=== PATIENT | female | born 1940 | race Caucasian/White ===

== ENCOUNTER 2016-09-27 01:48 | Emergency (ER) | payer MEDICARE, OTHER ==
[~2016-09-27 01:48] MED LIST: BACT800T5 PO; COUM7.5T PO; LEFL20 PO; LOSA50TA PO; MACR100C PO; METO50TA PO
[2016-09-27 03:16] VITALS: BP 140/67; PULSE 78; RESP 16; TEMP 97.9; O2SAT 98
[2016-09-27] MEDS ORDERED: LOSA50TA PO (03:30)
[2016-09-27] MEDS ORDERED: LEFL1TAB3 PO (03:30)
[2016-09-27] MEDS ORDERED: METO50TA PO (03:30)
[2016-09-27] MEDS ORDERED: MONT10TA4 PO (03:30)
[2016-09-27] MEDS ORDERED: FLUT50SP EACH NARE (03:30)
[2016-09-27] MEDS ORDERED: WARF-21 PO (03:30)
[2016-09-27 03:41] LABS: AUTOMATED NEUTROPHIL # 6.3 TH/MM3 (1.8-7.7); BASOPHIL # 0.1 TH/MM3 (0-0.2); BASOPHIL % 0.8 % (0.0-2.0); EOSINOPHIL # 0.2 TH/MM3 (0-0.4); EOSINOPHIL % 1.8 % (0.0-4.0); HEMATOCRIT 37.2 % (35.0-46.0); HEMO FLAGS DIFF FINAL; LYMPH % 16.5 % (9.0-44.0); LYMPHOCYTE # 1.5 TH/MM3 (1.0-4.8); MEAN CELL VOLUME 90.7 FL (80.0-100.0); MEAN CORPUSCULAR HEMOGLOBIN 29.1 PG (27.0-34.0); MEAN CORPUSCULAR HGB CONC 32.1 % (32.0-36.0); MONO % 10.4 % (0.0-8.0); NEUT % 70.5 % (16.0-70.0); PLATELET COUNT 247 TH/MM3 (150-450); RED CELL DISTRIBUTION WIDTH 13.5 % (11.6-17.2); WHITE BLOOD COUNT 8.9 TH/MM3 (4.0-11.0)
[2016-09-27 03:51] LABS: INTERNATIONAL NORMALIZED RATIO 2.6 RATIO; PROTHROMBIN TIME - PATIENT 30.2 SEC (9.8-11.6)
--- NOTE | 2016-09-27 03:51 | PD ---
HPI Chief Complaint: Bleeding Time Seen by Provider: 03:46 Travel History International Travel<30 days: No Contact w/Intl Traveler<30days: No Traveled to known affect area: No History of Present Illness HPI 76-year-old female came to the emergency room with her with history of some oral bleeding. She was asleep when she woke up and made her way to the bathroom. The there is something stuck in her throat. Offered out was a small quantity of blood mixed with mucus. Patient got concerned and came to the emergency room. No history of fever or vomiting. When she looked in the mirror there was some blood that was around her lower gum margin. Patient is on Coumadin and hence was concerned and came to the emergency room. [facility] Past Medical History Narrative Medical List of her past medical, surgical, social and family history is reviewed from the nursing note. Hx Anticoagulant Therapy: Yes Cancer: Yes (HX R BREAST) Cardiovascular Problems: Yes High Cholesterol: Yes Diminished Hearing: No Hypertension: Yes Tetanus Vaccination: Unknown ?: Not Past Surgical History Cardiac Surgery: Yes (HEART VALVE REPLACEMENT) Coronary Artery Bypass Graft: Yes Hysterectomy: Yes Mastectomy: Yes (right side ) Social History Alcohol Use: No Tobacco Use: No Substance Use: No Allergies-Medications (Allergen,Severity, Reaction): Coded Allergies: CRESTOR (Verified Allergy, Unknown, LIPS SWELLED, 09/27/16) Penicillin (Verified Allergy, Unknown, ANAPHYLAXIS, 09/27/16) Comments List of her allergies reviewed from the nursing note. Reported Meds & Prescriptions Reported Meds & Active Scripts Active Reported Fluticasone Nasal [place] 50 Mcg/Act Naspr 100 Mcg EACH NARE DAILY 50 mcg/spray Montelukast (Montelukast Sodium) 10 Mg Tab 10 Mg PO HS Leflunomide 20 Mg Tab 20 Mg PO DAILY Losartan (Losartan Potassium) 50 Mg Tab 50 Mg PO DAILY Metoprolol Tartrate 50 Mg Tab 50 Mg PO BID Warfarin 7.5 Mg Tab 7.5 Mg PO DAILY Narrative Medication List of her home medications reviewed from the nursing note. Review of Systems Except as stated in HPI: all other systems reviewed are Neg Physical Exam Narrative GENERAL: Awake, alert, elderly, anxious, no obvious distress SKIN: Focused skin assessment warm/dry. HEAD: Atraumatic. Normocephalic. EYES: Pupils equal and round. No scleral icterus. No injection or drainage. ENT: No nasal bleeding or discharge. Mucous membranes pink and moist. The oral mucosa was inspected closely including the nostril. There was no active bleeding. The lower gum margin looked a little eroded. NECK: Trachea midline. No JVD. CARDIOVASCULAR: Regular rate and rhythm. No murmur appreciated. RESPIRATORY: No accessory muscle use. Clear to auscultation. Breath sounds equal bilaterally. GASTROINTESTINAL: Abdomen soft, non-tender, nondistended. Hepatic and splenic margins not palpable. MUSCULOSKELETAL: No obvious deformities. No clubbing. No cyanosis. No edema. NEUROLOGICAL: Awake and alert. No obvious cranial nerve deficits. Motor grossly within normal limits. Normal speech. PSYCHIATRIC: Appropriate mood and affect; insight and judgment normal. Data Data Last Documented VS Vital Signs Date Time Temp Pulse Resp B/P Pulse Ox O2 Delivery O2 Flow Rate FiO2 09/27/16 03:16 97.9 78 16 140/67 98 Orders Complete Blood Count With Diff (09/27/16 03:14) Prothrombin Time / Inr (Pt) (09/27/16 03:14) Labs Laboratory Tests Test 09/27/16 03:20 White Blood Count 8.9 TH/MM3 Red Blood Count 4.10 MIL/MM3 Hemoglobin 11.9 GM/DL Hematocrit 37.2 % Mean Corpuscular Volume 90.7 FL Mean Corpuscular Hemoglobin 29.1 PG Mean Corpuscular Hemoglobin 32.1 % Concent Red Cell Distribution Width 13.5 % Platelet Count 247 TH/MM3 Mean Platelet Volume 8.5 FL Neutrophils (%) (Auto) 70.5 % Lymphocytes (%) (Auto) 16.5 % Monocytes (%) (Auto) 10.4 % Eosinophils (%) (Auto) 1.8 % Basophils (%) (Auto) 0.8 % Neutrophils # (Auto) 6.3 TH/MM3 Lymphocytes # (Auto) 1.5 TH/MM3 Monocytes # (Auto) 0.9 TH/MM3 Eosinophils # (Auto) 0.2 TH/MM3 Basophils # (Auto) 0.1 TH/MM3 CBC Comment DIFF FINAL Differential Comment Prothrombin Time 30.2 SEC Prothromb Time International 2.6 RATIO Ratio MDM Medical Decision Making Medical Screen Exam Complete: Yes Emergency Medical Condition: Yes Medical Record Reviewed: Yes Differential Diagnosis Oral bleeding, supratherapeutic INR, seizure. Narrative Course 3:50 AM CBC and INR is back which is within normal limit. INR is subtherapeutic. Awaiting for the INR. Procedures EKG Prior to Arrival: No Diagnosis Primary Impression: Oral bleeding Referrals: Primary Care Physician Additional Instructions: Please return to the ER if the condition worsens or any other new concerns. Otherwise follow-up with your primary care in couple days. Maintain good oral hygiene. Disposition: 01 DISCHARGE HOME Condition: Stable Filiberto Enriquez MD Sep 27, 2016 03:51
== END 2016-09-27 05:01 | disposition home or self-care (01) ==
LOC: NEPE 01:48
DX: R58 Hemorrhage, not elsewhere classified (principal); E78.00 Pure hypercholesterolemia, unspecified; I10 Essential (primary) hypertension; Z79.01 Long term (current) use of anticoagulants; Z79.899 Other long term (current) drug therapy; Z88.0 Allergy status to penicillin
CPT/HCPCS: 85025; 85610; 99283